=== PATIENT | male | born 1985 | race Caucasian/White ===

== ENCOUNTER 2018-06-07 23:51 | Emergency (ER) | payer MEDICAID ==
[2018-06-08 00:15] VITALS: O2SAT 98
--- NOTE | 2018-06-08 00:33 | C.PDOC ---
History Of Present Illness 33 year old male presents to the ED for evaluation of depression and suicidal ideation. Patient states he does not want to live anymore. Patient denies HI, hallucinations, injury, fall, trauma, other medical complaints at this time. <Melvin Talbert Keny - Last Filed: 06/08/18 07:09> History Per: Patient History/Exam Limitations: no limitations Onset/Duration Of Symptoms: Days Current Symptoms Are (Timing): Still Present Suicide/Self Injury Attempted (Context): Other Associated Symptoms: Depression, Suicidal Thoughts. denies: Suicidal Plan Recent travel outside of the [place]: No Additional History Per: Patient <Melvin Talbert - Last Filed: 06/08/18 07:09> <Lamine Wagner - Last Filed: 06/08/18 07:55> Chief Complaint (Nursing): Psychiatric Evaluation Past Medical History Reviewed: Historical Data, Nursing Documentation, Vital Signs Vital Signs: Last Vital Signs Temp 98.1 F 06/08/18 00:00 Pulse 88 06/08/18 00:00 Resp 20 06/08/18 00:00 BP 129/88 06/08/18 00:00 Pulse Ox 98 06/08/18 00:00 - Medical History PMH: Anxiety, Asthma, Bipolar Disorder, Depression Denies: Diabetes, Hepatitis, HIV, HTN, Chronic Kidney Disease, Seizures, Sexually Transmitted Disease Surgical History: No Surg Hx - [facility] DETOXIFICATION SERVICES FOR SUBSTANCE ABUSE TREATMENT (02/17/16) Family History: States: Unknown Family Hx - Social History Hx Alcohol Use: Yes Hx Substance Use: No - Immunization History Hx Tetanus Toxoid Vaccination: Yes Hx Influenza Vaccination: Yes (2015) Hx Pneumococcal Vaccination: No <Melvin Talbert - Last Filed: 06/08/18 07:09> Vital Signs: Last Vital Signs Temp 97.6 F 06/08/18 07:10 Pulse 60 06/08/18 07:10 Resp 16 06/08/18 07:10 BP 110/66 06/08/18 07:10 Pulse Ox 98 06/08/18 07:12 - [facility] DETOXIFICATION SERVICES FOR SUBSTANCE ABUSE TREATMENT (02/17/16) <Lamine Wagner - Last Filed: 06/08/18 07:55> Review Of Systems Constitutional: Negative for: Fever, Chills Cardiovascular: Negative for: Chest Pain Respiratory: Negative for: Shortness of Breath Gastrointestinal: Negative for: Nausea, Vomiting, Abdominal Pain Skin: Negative for: Rash Psych: Positive for: Depression, Suicidal ideation <Melvin Talbert - Last Filed: 06/08/18 07:09> Physical Exam - Physical Exam Appears: Non-toxic, No Acute Distress Skin: Normal Color, Warm, Dry Head: Atraumatic, Normacephalic Eye(s): bilateral: Normal Inspection Neck: Normal ROM, Supple Chest: Symmetrical Cardiovascular: Rhythm Regular Respiratory: Normal Breath Sounds, No Rales, No Rhonchi, No Wheezing Gastrointestinal/Abdominal: Soft, No Tenderness, No Distention Extremity: Normal ROM, No Tenderness Neurological/Psych: Oriented x3, Normal Speech, Normal Cognition Gait: Steady <Melvin Talbert - Last Filed: 06/08/18 07:09> ED Course And Treatment - Laboratory Results Result Diagrams: 06/08/18 00:34 06/08/18 00:34 ECG: Interpreted By Me, Viewed By Me ECG Rhythm: Sinus Rhythm ECG Interpretation: No Acute Changes Interpretation Of ECG: nsr,lad,irbbb, no ACUTE CHANGES Rate From EC O2 Sat by Pulse Oximetry: 98 (ON RA) Pulse Ox Interpretation: Normal - Radiology CXR: Interpreted by Me CXR Interpretation: Yes: No Acute Disease Progress Note: MEDICALLY CLEARED FOR TRANSFER. <Melvin Talbert - Last Filed: 06/08/18 07:09> - Laboratory Results Result Diagrams: 06/08/18 00:34 06/08/18 00:34 Lab Results: Total Bilirubin 0.8 mg/dL (0.2-1.3) 06/08/18 00:34 AST 118 U/L (17-59) H 06/08/18 00:34 ALT 170 U/L (21-72) H D 06/08/18 00:34 Alkaline Phosphatase 95 U/L (38-126) 06/08/18 00:34 Total Protein 7.4 g/dL (6.3-8.3) 06/08/18 00:34 Albumin 4.4 g/dL (3.5-5.0) 06/08/18 00:34 Globulin 3.0 gm/dL (2.2-3.9) 06/08/18 00:34 Albumin/Globulin Ratio 1.5 (1.0-2.1) 06/08/18 00:34 Urine Color Yellow (YELLOW) 06/08/18 00:59 Urine Clarity Hazy (Clear) 06/08/18 00:59 Urine pH 6.0 (5.0-8.0) 06/08/18 00:59 Ur Specific [place] 1.023 (1.003-1.030) 06/08/18 00:59 Urine Protein 1+ mg/dL (NEGATIVE) H 06/08/18 00:59 Urine Glucose (UA) Normal mg/dL (Normal) 06/08/18 00:59 Urine Ketones Negative mg/dL (NEGATIVE) 06/08/18 00:59 Urine Blood Negative (NEGATIVE) 06/08/18 00:59 Urine Nitrate Negative (NEGATIVE) 06/08/18 00:59 Urine Bilirubin Negative (NEGATIVE) 06/08/18 00:59 Urine Urobilinogen Normal mg/dL (0.2-1.0) 06/08/18 00:59 Ur Leukocyte Esterase Neg Doreen/uL (Negative) 06/08/18 00:59 Urine WBC (Auto) 1 /hpf (0-5) 06/08/18 00:59 Urine RBC (Auto) < 1 /hpf (0-3) 06/08/18 00:59 Ur Squamous Epith Cells 3 /hpf (0-5) 06/08/18 00:59 Urine Bacteria Rare (<OCC) 06/08/18 00:59 <Lamine Wagner - Last Filed: 06/08/18 07:55> Medical Decision Making Medical Decision Making: Plan: * LAbs * UA * 1:1 Obs 01:38 - Patient medically cleared hospitality workers spoken to, states patient will be transferred to [facility] under Dr. Lucero for admission. <Melvin Talbert - Last Filed: 06/08/18 07:09> Disposition - Disposition Disposition Time: 07:00 <Melvin Talbert - Last Filed: 06/08/18 07:09> <Lamine Wagner - Last Filed: 06/08/18 07:55> - Disposition Condition: STABLE Forms: [facility] ([place]ian) - Clinical Impression Clinical Impression: Suicidal ideation - Scribe Statement The provider has reviewed the documentation as recorded by the Scribe Mike Mtz All medical record entries made by the Scribe were at my direction and personally dictated by me. I have reviewed the chart and agree that the record accurately reflects my personal performance of the history, physical exam, medical decision making, and the department course for this patient. I have also personally directed, reviewed, and agree with the discharge instructions and disposition. <Melvin Talbert - Last Filed: 06/08/18 07:09> Addendum Addendum: 06/08/18 07:[address] Keller, ED attending at [facility], who accepts patient for ED to ED transfer. Patient will be transferred for psychiatric admission under Dr. Lucero. <Lamine Wagner - Last Filed: 06/08/18 07:55>
[2018-06-08 00:37] LABS: BASO % 0.5 % (0.0-2.0); EOS # 0.2 K/uL (0.0-0.7); EOS % 2.4 % (0.0-4.0); LYMPH # 1.8 K/uL (1.0-4.3); LYMPH % 22.5 % (20.0-40.0); MEAN CELL VOLUME 86.8 fL (80.0-94.0); MEAN CORPUSCULAR HEMOGLOBIN 29.7 pg (27.0-31.0); MEAN CORPUSCULAR HGB CONC 34.3 g/dL (33.0-37.0); MEAN PLATELET VOLUME 9.2 fL (7.2-11.7); MONO # 0.8 K/uL (0.0-0.8); MONO % 10.2 % (0.0-10.0); NEUT % 64.4 % (50.0-75.0); RBC 4.39 Mil/uL (4.40-5.90); RED CELL DISTRIBUTION WIDTH 12.9 % (11.5-14.5); WHITE BLOOD COUNT 7.8 K/uL (4.8-10.8)
[2018-06-08 00:54] LABS: ALB/GLOB RATIO 1.5 (1.0-2.1); ALBUMIN 4.4 g/dL (3.5-5.0); ALT/SGPT 170 U/L (21-72); AST/SGOT 118 U/L (17-59); BLOOD UREA NITROGEN 22 mg/dL (9-20); CALCIUM 8.9 mg/dl (8.6-10.4); GFR NON-AFRICAN AMERICAN > 60
[2018-06-08 01:16] LABS: SQUAMOUS EPITHIAL 3 /hpf (0-5); URINE BACTERIA RARE (<OCC); URINE BILIRUBIN NEGATIVE (NEGATIVE); URINE BLOOD NEGATIVE (NEGATIVE); URINE CLARITY Hazy (Clear); URINE COLOR Yellow (YELLOW); URINE GLUCOSE (UA) NORMAL (Normal); URINE LEUKOCYTE ESTERASE NEG Leu/uL (Negative); URINE PROTEIN 1+ mg/dL (NEGATIVE); URINE UROBILINOGEN NORMAL mg/dL (0.2-1.0)
[2018-06-08 01:24] LABS: BARBITURATES, UR NEGATIVE (NEGATIVE); BENZODIAZEPINES, UR NEGATIVE (NEGATIVE); PHENCYCLIDINE, UR NEGATIVE (NEGATIVE)
[2018-06-08 02:07] LABS: OPIATES, UR POSITIVE (NEGATIVE)
--- NOTE | 2018-06-08 07:49 | RAD ---
Date of service: 06/08/2018 HISTORY: for transfer to [facility] for admission COMPARISON: No prior. TECHNIQUE: Chest PA and lateral views FINDINGS: LUNGS: No active pulmonary disease. PLEURA: No significant pleural effusion identified. No pneumothorax apparent. CARDIOVASCULAR: No aortic atherosclerotic calcification present. Normal cardiac size. No pulmonary vascular congestion. OSSEOUS STRUCTURES: Thoracic spondylosis VISUALIZED UPPER ABDOMEN: Normal. OTHER FINDINGS: None. IMPRESSION: No active disease.
[2018-06-08 09:29] VITALS: BP 110/61; PULSE 54; RESP 15; TEMP 98.8
--- NOTE | 2018-06-09 23:48 | CARD ---
APPROVED REPORT Date of service: 06/08/2018 EKG Measurement Heart [id number] <Conclusion> Normal sinus rhythm Left axis deviation Incomplete right bundle branch block Prolonged QT Abnormal ECG
== END 2018-06-08 09:34 | disposition short-term general hospital (02) ==
LOC: MERGE 23:51 → C.ER 23:51
DX: R45.851 Suicidal ideations (principal); F31.9 Bipolar disorder, unspecified; F41.9 Anxiety disorder, unspecified